=== PATIENT | female | born 1980 | race Asian ===

== ENCOUNTER 2018-02-12 10:43 | Inpatient (IN) | payer SELFPAY ==
[~2018-02-12] VITALS: Ht 154.9 cm; Wt 68.0 kg
[2018-02-13] MEDS ORDERED: LACTATED RINGERS 1,000 ML IV SCH (15:28)
[2018-02-13 16:13] LABS: BASOPHILS % (AUTO) 0.3 % (0.0-2.0); EOSINOPHILS % (AUTO) 0.3 % (0.0-4.0); HEMOGLOBIN 12.7 g/dL (12.0-16.0); LYMPHOCYTES # (AUTO) 1.1 K/uL (2.5-16.5); LYMPHOCYTES % (AUTO) 14.6 % (20.5-51.1); MEAN CORPUSCULAR HEMOGLOBIN 28 pg (27-31); MEAN CORPUSCULAR HGB CONC 33 g/dL (33-37); MEAN CORPUSCULAR VOLUME 84.5 fL (80-94); MONOCYTES # (AUTO) 0.5 K/uL (0.8-1.0); MONOCYTES % (AUTO) 6.3 % (1.7-9.3); NEUTROPHILS % (AUTO) 78.5 % (42.2-75.2); PLATELET COUNT (AUTO) 154 K/uL (140-450); RED BLOOD CELL COUNT(AUTO) 4.62 MIL/uL (4.20-5.40); RED CELL DISTRIBUTION WIDTH 17.4 % (11.6-13.7); WHITE BLOOD COUNT (AUTO) 7.6 K/uL (4.8-10.8)
[2018-02-13 16:35] LABS: ALBUMIN 2.9 g/dL (3.4-5.0); ANION GAP 16.2 (8-16); CARBON DIOXIDE 22.7 mmol/L (21-32); CREATININE 0.6 mg/dL (0.6-1.3); POTASSIUM 3.9 mmol/L (3.5-5.1); TOTAL BILIRUBIN 0.5 mg/dL (0.0-1.0)
[2018-02-13 16:47] VITALS: BP 112/67
[2018-02-13] MEDS ORDERED: IBUPROFEN 800 MG TAB PO PRN (17:05)
[2018-02-13] MEDS ORDERED: TEMAZEPAM 15 MG CAP PO PRN (17:05)
[2018-02-13] MEDS ORDERED: METHYLERGONOVINE 0.2 MG/ML AMP IM PRN (17:05)
[2018-02-13] MEDS ORDERED: TRIMETHOBENZAMIDE 200 MG/2 ML SYR IM PRN (17:05)
[2018-02-13] MEDS ORDERED: MEASLES, MUMPS, AND RUBELLA 1 VIAL SQVAC PRN (17:05)
[2018-02-13] MEDS ORDERED: oxyCODONE/APAP 5/325 MG 1 TAB TAB PO PRN (17:05)
[2018-02-13] MEDS ORDERED: fentaNYL 0.05 MG/ML VIAL ONE (18:13)
[2018-02-13] MEDS ORDERED: MORPHINE PRES FREE 10 MG/10 ML AMP IV ONE (18:14)
[2018-02-13] MEDS ORDERED: OXYTOCIN 10 UNITS/ML VIAL ONE (18:54)
[2018-02-13 19:05] LABS: APPEARANCE,URINE CLEAR (CLEAR); BILIRUBIN,URINE NEGATIVE (NEGATIVE); BLOOD, URINE NEGATIVE (NEGATIVE); COLOR,URINE YELLOW (YELLOW); LEUKOCYTE ESTERASE ,URINE TRACE (NEGATIVE); NITRITE, URINE NEGATIVE (NEGATIVE); PH,URINE 6.5 (5.0-9.0); UGLUCOSE NEGATIVE (NEGATIVE)
[2018-02-13 19:06] LABS: RBC,URINE 3-10 (FEW) /HPF (0-5); WBC,URINE 0-5 (RARE) /HPF (0-5)
[2018-02-13] MEDS ORDERED: NALOXONE 0.4 MG/ML VIAL IVP PRN ×3 (19:10)
[2018-02-13] MEDS ORDERED: diphenhydrAMINE 50 MG/ML VIAL IVP PRN (19:10)
[2018-02-13] MEDS ORDERED: ONDANSETRON 4 MG/2 ML VIAL IVP PRN ×2 (19:10)
[2018-02-13] MEDS ORDERED: KETOROLAC 60 MG/2 ML VIAL IM PRN (19:10)
[2018-02-13] MEDS ORDERED: NALBUPHINE 10 MG/ML AMP IVP PRN (19:10)
[2018-02-13] MEDS ORDERED: KETAMINE 500 MG/5 ML VIAL ONE (19:15)
[2018-02-13] MEDS ORDERED: ceFAZolin 1,000 MG VIAL IVP ONE (19:29)
[2018-02-13] MEDS ORDERED: ONDANSETRON 4 MG/2 ML VIAL ONE (19:45)
[2018-02-13] MEDS ORDERED: diphenhydrAMINE 50 MG/ML VIAL ONE (19:46)
[2018-02-13] MEDS: OXYTOCIN 20 UNITS/LR PREMIX 1,000 ML IV ONE ×2 (20:03→20:20)
[2018-02-13] MEDS: DOCUSATE SOD/SENNA 50/8.6 MG 1 TAB PO SCH (22:07)
[2018-02-14] MEDS ORDERED: OXYTOCIN 20 UNITS/LR PREMIX 1,000 ML IV ONE (04:20)
[2018-02-14] MEDS: OXYTOCIN 20 UNITS in LACTATED RINGERS 1,000 ML IV SCH ×2 (04:27→13:11)
[2018-02-14 06:42] LABS: HEMATOCRIT 35.6 % (36-48); HEMOGLOBIN 11.5 g/dL (12.0-16.0); MEAN CORPUSCULAR HEMOGLOBIN 28 pg (27-31); MEAN CORPUSCULAR HGB CONC 32 g/dL (33-37); MEAN CORPUSCULAR VOLUME 85.9 fL (80-94); PLATELET COUNT (AUTO) 113 K/uL (140-450); RED BLOOD CELL COUNT(AUTO) 4.14 MIL/uL (4.20-5.40); WHITE BLOOD COUNT (AUTO) 11.2 K/uL (4.8-10.8)
[2018-02-14 07:45] LABS: BASOPHILS % (MANUAL) 0 % (0-2); EOSINOPHILS % (MANUAL) 0 % (0-4); LYMPHOCYTES % (MANUAL) 9 % (20-46); MONOCYTES % (MANUAL) 4 % (5-12)
--- NOTE | 2018-02-14 08:16 | NUR ---
PATIENT HAS BEEN SCREENED AND CATEGORIZED LOW RISK. PATIENT WILL BE SEEN WITHIN 7 DAYS OF ADMISSION. 02/20/[address], [facility]
[2018-02-14] MEDS: SIMETHICONE 80 MG TAB.CHEW PO PRN (18:00)
[2018-02-14] MEDS: DOCUSATE SOD/SENNA 50/8.6 MG 1 TAB PO SCH (21:24)
[2018-02-15] MEDS: HYDROcodone/APAP 5/325 MG 1 TAB TAB PO PRN ×2 (09:00→15:31)
[2018-02-15] MEDS: SIMETHICONE 80 MG TAB.CHEW PO PRN ×2 (09:00→21:32)
[2018-02-15 13:20] LABS: RAPID PLASMA REAGIN NON-REACTIVE (Non Reactiv)
[2018-02-15] MEDS: DOCUSATE SOD/SENNA 50/8.6 MG 1 TAB PO SCH (21:32)
[2018-02-16] MEDS: HYDROcodone/APAP 5/325 MG 1 TAB TAB PO PRN ×3 (01:52→16:16)
[2018-02-16] MEDS: SIMETHICONE 80 MG TAB.CHEW PO PRN (08:26)
[2018-02-16] MEDS ORDERED: SODIUM PHOSPHATE 118 ML ENEM RC PRN (16:45)
[2018-02-16] MEDS: DOCUSATE SOD/SENNA 50/8.6 MG 1 TAB PO SCH (21:41)
== END 2018-02-17 10:55 | disposition home or self-care (01) | DRG 766 ==
LOC: MLD 02-13 15:00 → OBSVTOIN 02-13 15:00 → MFCC 02-13 20:40
PROVIDERS: ADMIT Obstetrics & Gynecology; ATTEND Obstetrics & Gynecology
PROC: 3E0234Z Introduction of Serum, Toxoid and Vaccine into Muscle, Percutaneous Approach (ICD-10-PCS; 2018-02-13)
PROC: 10D00Z1 Extraction of Products of Conception, Low, Open Approach (ICD-10-PCS; principal; 2018-02-13 17:45)
DX: O34.211 Maternal care for low transverse scar from previous cesarean delivery (principal); Z23 Encounter for immunization; Z37.0 Single live birth; Z3A.40 40 weeks gestation of pregnancy
CPT/HCPCS: 36415; 80053; 81001; 85025; 86592; 86886; 86900; 86901; 90715; J0690; J1200; J2270; J2405; J2590; J3010; J7060; J7120